=== PATIENT | female | born 1950 | race Caucasian/White ===

== ENCOUNTER 2023-11-27 09:00 | Outpatient (RCR) | payer MEDICARE, SELFPAY | END 2023-11-27 09:29 | disposition home or self-care (01) | LOC: HO.OT 09:00 | PROVIDERS: PCP Internal Medicine; Visit Provider Orthopaedic Surgery Hand Surgery | DX: Z47.89 Encounter for other orthopedic aftercare (principal) | CPT/HCPCS: 29125; 97035; 97110; 97140; 97166; 97530; 97535 ==